=== PATIENT | female | born 1965 | race Caucasian/White ===

== ENCOUNTER 2018-09-16 05:45 | Day surgery (SDC) | payer OTHER, SELFPAY ==
[2018-09-16 06:09] VITALS: BP 122/74; PULSE 71; RESP 18; TEMP 37.1; O2SAT 99; BMI 33.2
[2018-09-16] MEDS: Cefazolin 2 GM in 0.9% Normal Saline 100 ML IV (07:22)
--- NOTE | 2018-09-16 07:22 | PCM.IMDPSTOP ---
Immediate Post-Op Note Date of Procedure: 09/16/18 Primary Surgeon/Physician: Michelle Sharma trip follower: AMADOU WONG medical student Pre-Operative Diagnosis: right inguinal hernia Post-Operative Diagnosis: right inguinal hernia - direct Surgery/Procedure Performed:: right inguinal hernia repair with mesh Description of Surgical Findings:: right inguinal hernia - direct Estimated Blood Loss: < 10 ml Specimen's removed: none Type of Anesthesia:: Local MAC ASA Class: ASA2 Mod Systematic Disease - Admit VTE Documentation VTE Present on Admission: Yes VTE Mechan Device Prophylaxis: SCD's
--- NOTE | 2018-09-16 07:24 | DCINST_ITS ---
Discharge Diet: No Restrictions Discharge Activity: Return to Normal Activity, May not drive while taking narcotic pain medications. Lifting Restrictions: no lifting greater than 40 pounds for one month Call your doctor if your incision/area has: Continuous Slow Oozing, Foul Smelling Discharge Call your doctor if you observe: Fever of 101 or Higher Additional Dressing/Incision Instructions:: Leave dressing in place. may get wet in shower. Do not soak - no tub baths/swimming Allergies/Adverse Reactions: Allergies No Known Allergies Allergy (Verified 09/13/18 10:24) Medications to take at Discharge Montelukast [Singulair] 10 mg PO QHS 09/13/18 Hydrocodone Bitart/Apap 5-325 [[place] 5MG-325MG] 1 tab PO Q6H PRN PRN 5 Days #20 tab 09/16/18 The following prescriptions were given: Hydrocodone Bitart/Apap 5-325 [[place] 5MG-325MG] 1 tab PO Q6H PRN PRN 5 Days #20 tab PRN Reason: Pain Primary Care Physician: Rene Gomez DO [Primary Care Provider] - Test Results: Test results from this visit will be discussed in further detail at your follow- up appointment, if applicable. Please Follow Up With: Michelle Sharma MD - call When: to be seen in 7-10 days, please call for date and time, thank you
[2018-09-16] MEDS: Bupivacaine Mpf 0.5% 30 ML VIAL (07:37)
--- NOTE | 2018-09-16 08:44 | PCM.OPRPT ---
Report of Operation Date of Procedure: 09/16/18 Pre-Operative Diagnosis: right inguinal hernia Post-Operative Diagnosis: right inguinal hernia - direct Surgery/Procedure Performed:: right inguinal hernia repair with mesh Description of Surgical Findings:: right inguinal hernia - direct dining service supervisor: NOT,DEFINED - Chris Yeager medical student Type of Anesthesia:: Local MAC Anesthesiologist: Mundo Shetty Specimen's removed: none Estimated Blood Loss (mL): < 10 ml Fluids Replaced: 800 ml RL Description of Procedure: After informed consent was obtained, patient was brought to the Operating Room. Appropriate time out protocol was followed. She was then placed in the supine position. The patient was then placed under anesthesia. The lower torso and the right groin area and genitalia were then prepped with a surgical skin preparation and appropriate sterile surgical drapes were placed. The anatomical landmarks were identified and after anesthetizing the skin and subcutaneous tissues with 1% xylocaine with epinephrine and 0.5% Marcaine, a transverse skin incision was made above the level of the internal inguinal ring. The subcutaneous tissues were then sharply dissected down to the external oblique fascia and any hemorrhage was adequately controlled with electrocoagulation. The external oblique was then divided obliquely along the fibers and a muscle-splitting incision was then made to divide the internal oblique musculature and fascia. The transversalis fascia was then identified and was then incised parallel to the inferior hypogastric vessels. The preperitoneal space was then entered. Blunt dissection was then done to identify out Kurt's ligament, the pubic tubercle and a large area surrounding these landmarks for placement of the mesh. The femoral vessels were identified. The patient was noted to have a direct inguinal hernia, no femoral hernia was noted, The round ligament was identified - no indirect inguinal hernia was noted. A large sized Bard 3D Max Mesh was placed in the preperitoneal space such that it would be overlapping medially beyond the pubic tubercle and overlapping inferior to Kurt's ligament. The patient was then placed in the reversed [place] position to ensure that the mesh was laid out properly according to power electronics engineer's guidelines. The mesh covered the entire wound opening also. The internal oblique fascia was then closed using interrupted 0 prolene suture. One of the sutures was used to lock the mesh into position. Hemostasis was carefully controlled with electrocoagulation. The external oblique fascia was then reapproximated using a running 0 Vicryl suture. This was carefully done to avoid any entrapment of blood vessels/nerves. Dana's fascia was closed using Vicryl suture in an interrupted simple fashion. The skin incision was closed with 4-0 Monocryl in a running subcuticular fashion. Cavilon and Steri-Strips were used to reinforce the skin closure and appropriate sterile dressing was applied. The patient was brought to the Recovery Room in stable condition. Grafts/Implants Used: Bard 3D Max Mesh Lot [id number] exp 2023-07-19, Covidien tacker [id number] - Complications none noted - Admit VTE Documentation VTE Present on Admission: Yes VTE Mechan Device Prophylaxis: SCD's
[2018-09-16 08:51] VITALS: BP 120/64; BP 122/74; PULSE 72; RESP 16; TEMP 36.7; O2SAT 98
[2018-09-16 08:56] VITALS: BP 117/66; BP 122/74; PULSE 71; RESP 16; O2SAT 97
[2018-09-16 09:01] VITALS: BP 120/68; BP 122/74; PULSE 71; RESP 16; O2SAT 96
[2018-09-16 09:05] VITALS: BP 118/68; BP 122/74; PULSE 72; RESP 16; TEMP 36.7; O2SAT 98
[2018-09-16 10:46] VITALS: BP 121/73; BP 122/74; PULSE 73; RESP 16; TEMP 37.3; O2SAT 97
== END 2018-09-16 10:48 | disposition home or self-care (01) ==
LOC: SDC 05:47 → AC 05:55
PROVIDERS: Family Provider Student in an Organized Health Care Education/Training Program; PCP Student in an Organized Health Care Education/Training Program; Referring Provider Surgery; Visit Provider Surgery
PROC: (CPT 49505; principal; 2018-09-16 07:15)
DX: K40.90 Unilateral inguinal hernia, without obstruction or gangrene, not specified as recurrent (principal); M50.30 Other cervical disc degeneration, unspecified cervical region; Z79.899 Other long term (current) drug therapy; Z87.891 Personal history of nicotine dependence
CPT/HCPCS: 00830; 49505; J7050; J7120; C1781; J2405